=== PATIENT | male | born 1995 | race Hispanic/Latino ===

== ENCOUNTER 2017-04-10 15:38 | Emergency (ER) | payer BC ==
[2017-04-10 15:58] VITALS: BP 128/68; PULSE 89; RESP 18; TEMP 98.2; O2SAT 98
--- NOTE | 2017-04-10 16:09 | ED PDOC ---
Lower Extremity Pain/Injury Time Seen by Provider: 04/10/17 15:58 Chief Complaint (Nursing): Lower Extremity Problem/Injury Chief Complaint (Provider): Right Knee Pain History Per: Patient Onset/Duration Of Symptoms: Days (x 16) Current Symptoms Are (Timing): Still Present Additional Complaint(s): Pedro is a 21 year old male who presents to the Emergency Department complaining of right knee pain. Patient states he was playing basketball on March 26 where he tripped over a person's foot and landed directly on his right knee. Patient thought it was a bruise and walked it off. Patient claims it hurts when putting weight on right knee and has noticed that it is more swollen than his left knee. Denies going to doctor for check up and taking medications. PMD: Eulogio Cruz - Hip Description Of Injury: Tripped Past Medical History Reviewed: Historical Data, Nursing Documentation, Vital Signs Vital Signs: Last Vital Signs Temp 98.2 F 04/10/17 15:56 Pulse 89 04/10/17 15:56 Resp 18 04/10/17 15:56 BP 128/68 04/10/17 15:56 Pulse Ox 98 04/10/17 15:56 - Medical History PMH: Asthma - Surgical History Surgical History: Tonsillectomy - Family History Family History: States: No Known Family Hx - Home Medications Home Medications: Ambulatory Orders Medication Instructions Recorded Naproxen 1 tab PO Q12 PRN #14 tab 04/10/17 - Allergies Allergies/Adverse Reactions: Allergies Allergy/AdvReac Type Severity Reaction Status Date / Time No Known Allergies Allergy Verified 09/16/15 18:16 Review of Systems ROS Statement: Except As Marked, All Systems Reviewed And Found Negative Musculoskeletal: Positive for: Other (Right Knee Pain) Physical Exam - Reviewed Nursing Documentation Reviewed: Yes Vital Signs Reviewed: Yes - Physical Exam Appears: Positive for: Well, Non-toxic Head Exam: Positive for: ATRAUMATIC, NORMAL INSPECTION, NORMOCEPHALIC Skin: Positive for: Normal Color Eye Exam: Positive for: Normal appearance Respiratory: Positive for: Normal Breath Sounds. Negative for: Respiratory Distress Back: Negative for: Vertebral Tenderness Extremity: Positive for: Normal ROM, Other (Min effusion noted right knee) Neurologic/Psych: Positive for: Alert, Oriented - ECG O2 Sat by Pulse Oximetry: 98 (RA) Pulse Ox Interpretation: Normal - Progress ED Course And Treament: XRY OF KNEE: NO ACUTE FX; MILD EFFUSION Medical Decision Making Medical Decision Making: Time: 16:02 Plan: - Knee X-Ray Scribe Attestation: Documented by Gerald Quintanilla, acting as a scribe for Denis Patrick PA-C Provider Scribe Attestation: All medical record entries made by the Scribe were at my direction and personally dictated by me. I have reviewed the chart and agree that the record accurately reflects my personal performance of the history, physical exam, medical decision making, and the department course for this patient. I have also personally directed, reviewed, and agree with the discharge instructions and disposition. Disposition - Clinical Impression Clinical Impression: Knee injury - Patient ED Disposition Is Patient to be Admitted: No - Disposition Referrals: Eulogio Cruz MD [Primary Care Provider] - Tripp Ayala MD [Staff Provider] - Disposition: Routine/Home Disposition Time: 16:52 Condition: FAIR Prescriptions: Naproxen 1 tab PO Q12 PRN #14 tab PRN Reason: Pain, Moderate (4-7) Instructions: Knee Pain (ED) Forms: [facility] ([place]), [facility] ED School/Work Excuse
--- NOTE | 2017-04-11 07:16 | RAD ---
PROCEDURE: Right Knee Radiographs. HISTORY: knee injury COMPARISON: None. FINDINGS: BONES: Normal. No fracture. JOINTS: Normal. No osteoarthritis. JOINT EFFUSION: None. OTHER FINDINGS: None. IMPRESSION: Normal radiographs of the right knee.
== END 2017-04-10 17:06 | disposition home or self-care (01) ==
LOC: SUPCPDRO 15:38 → H.ER 15:38
DX: M25.561 Pain in right knee (principal)